=== PATIENT | male | born 1965 | race Caucasian/White ===

== ENCOUNTER 2018-02-04 14:56 | Emergency (ER) | payer MEDICAID ==
[2018-02-04] MEDS ORDERED: Sodium Chloride 0.9% 1000 ML 1,000 ML IV STA (15:16)
[2018-02-04] MEDS ORDERED: Zofran 4 MG/2 ML VIAL IV ONE (15:16)
[2018-02-04 15:23] LABS: BASOPHIL % 0.4 % (0.0-0.4); Basophil (Absolute #) 0.02 (0-0.4); Eosinophil % 1.6 % (0.00-5.0); Eosinophil (Absolute #) 0.09 (0-0.5); Granulocyte Absolute (ANC) 2.56 (1.4-6.9); Granulocytes % 45.6 % (36.0-66.0); Hematocrit 37.5 % (42-50); Hemoglobin 12.6 gm/dl (12.5-18.0); Lymphocyte (Absolute #) 2.42 (1.0-4.6); Lymphocytes % 43.1 % (24.0-44.0); Mean Cell Volume 102.2 fl (78-100); Mean Corpuscular Hemoglobin 34.3 pg (26-32); Mean Corpuscular Hgb Concent. 33.6 g/dl (32-36); Mean Platelet Volume 11.2 fl (6-9.5); Monocyte (Absolute #) 0.52 (0.0-1.3); Monocytes % 9.3 % (0.0-12.0); Platelet Count 70 K/mm3 (150-450); Red Blood Count 3.67 M/mm3 (4.1-5.6); White Blood Count 5.6 K/mm3 (4.0-10.5)
[2018-02-04 15:41] LABS: ETHYL ALCOHOL 237 mg/dL (0-10)
[2018-02-04 15:44] LABS: ACETAMINOPHEN < 10 ug/ml (10-30); SALICYLATE < 1.0 mg/dL (2-20)
[2018-02-04] MEDS ORDERED: Zofran 4 MG/2 ML VIAL ONE (15:51)
[2018-02-04] MEDS ORDERED: Sodium Chloride 0.9% 1000 ML 1,000 ML ONE (15:51)
[2018-02-04 15:57] LABS: Appearance CLEAR (CLEAR); Bilirubin NEGATIVE (NEGATIVE); Blood NEGATIVE Ery/ul (0-5); Glucose NEGATIVE (NEGATIVE); Ketones NEGATIVE (NEGATIVE); Leukocyte Esterase NEGATIVE (NEGATIVE); Nitrite NEGATIVE (NEGATIVE); Protein,Urine Dip NEGATIVE (Negative); Urobilinogen 4 mg/dL (0-1)
[2018-02-04 15:58] LABS: Amphetamine,Urine NEGATIVE (NEGATIVE); Barbiturate,Urine NEGATIVE (NEGATIVE); Benzodiazepine,Urine POSITIVE (NEGATIVE); Cocaine,Urine NEGATIVE (NEGATIVE); Opiate,Urine NEGATIVE (NEGATIVE); PCP,Urine NEGATIVE (NEGATIVE); THC,Urine NEGATIVE (NEGATIVE)
[2018-02-04 15:59] LABS: Methadone,Urine NEGATIVE (NEGATIVE)
--- NOTE | 2018-02-04 16:02 | XRAY ---
Indication: Altered mental status. Status post fall. Multiple contiguous axial images obtained through the cervical spine. Sagittal and coronal reformatted images obtained. Comparison: None Axial images negative for acute fracture or suspicious bony lesions. Mild/moderate C3-T1 degenerative endplate spurring greatest at the C5-C6 level where there is spinal canal narrowing. Sagittal and coronal reformatted images demonstrates normal alignment with C3-T1 disc space narrowing and tiny multilevel Schmorl nodes. No acute compression fracture, subluxation, or jumped facet. Normal-appearing craniocervical junction. Visualized noncontrasted soft tissues demonstrates heavy carotid calcifications bilaterally. Minimal biapical subpleural cystic changes. CT head reported separately. Impression: 1. Negative acute fracture/subluxation. 2. C3-T1 degenerative changes and multilevel tiny Schmorl nodes. CT DI 52.18
--- NOTE | 2018-02-04 16:03 | XRAY ---
Indication: Altered mental status. Status post fall. Multiple contiguous axial images obtained through the head without contrast. Comparison: None Normal appearing brain parenchyma, ventricles, and bony calvarium. Mild mucosal thickening of both ethmoid sinuses. Remaining visualized paranasal sinuses and mastoid air cells are clear. Impression: Normal CT head without contrast exam. Incidental paranasal sinus disease. CTDI 49.85
--- NOTE | 2018-02-04 16:06 | XRAY ---
Indication: Altered mental status. Status post fall. Multiple contiguous axial images obtained through the lumbar spine. Sagittal and coronal reformatted images obtained. Comparison: Lumbar radiograph April 25, 2007. Axial images negative for acute fracture or suspicious bony lesions. Minimal L4-S1 broad-based disc bulge. Small L5 Schmorl nodes. Sagittal and coronal reformatted images demonstrates normal alignment with vertebral body heights and disc spaces maintained. Stable minimal L1 anterior wedging deformity. No acute compression fracture or subluxation. Visualized noncontrasted soft tissues again demonstrates scattered aortoiliac calcifications. There is now partially visualized Hannah balloon tip in the bladder lumen. Lexx scan image demonstrates incidental moderate diffuse scattered colonic fecal debris. Impression: 1. Again negative acute fracture/subluxation. 2. Minimal L4-S1 broad-based disc bulge. 3. Incidental L5 Schmorl node, fecal stasis, scattered vascular calcifications, and Hannah catheter in situ. CT DI 46.47
--- NOTE | 2018-02-04 17:01 | ERPHSYRPT ---
- History of Present Illness Time Seen by Provider: 02/04/18 15:00 Source: patient, EMS Exam Limitations: clinical condition, intoxication Patient Subjective Stated Complaint: PATIENT FOUND DOWN ON GROUND UNRESPONSIVE IN [place]. DOWN FOR UNKNOWN AMOUNT OF TIME. HX ALCOHOL INTOXICATION. ALSO FOUND ON PATIENT BY EMS IS ONE BOTTLE OF XANAX 1 MG FOR 30 TABS FILLED ON 01/11/18. THERE ARE 17 PILLS IN THE BOTTLE AT THIS TIME. WAS GIVEN 2MG NARCAN PER EMS WITHOUT ANY CHANGE IN MENTAL STATUS. Triage Nursing Assessment: ARRIVES PER [facility]. PATIENT NOT RESPONDING TO VERBAL STIMULI AT THIS TIME. SHADY. SKIN W/D, COLOR PALE. RESP NONLABORED. IS ON BACK BOARD AND HAS C-COLLAR IN PLACE. ABRASION NOTED TO LEFT GREAT TOE. Physician History: 52 y/o white male found on ground initially minimally responsive. pt smelled of etoh. upon moving pt, pt complained of mild lower back pain. EMS placed in c collar and placed on backboard. upon arrival to ED pt denies cp, soa and abd pain. pt is known wanderer of streets, has dementia, has drug and etoh abuse hx. pt denies suicidal or homicidal issues. Timing/Duration: today Severity of Symptoms-Max: moderate Severity of Symptoms-Current: moderate Context related to: other (chronic alcohol and drug abuse hx.) Previous symptoms: same symptoms as today Allergies/Adverse Reactions: No Known Drug Allergies Allergy (Unverified 02/04/18 17:55) Home Medications: Alprazolam 1 mg [Xanax 1 mg] 1 mg PO DAILY 02/04/18 [History] - Past Medical History Pertinent Past Medical History: Yes Neurological History: Dementia ENT History: No Pertinent History Cardiac History: No Pertinent History Respiratory History: No Pertinent History Endocrine Medical History: No Pertinent History Musculoskeletal History: No Pertinent History GI Medical History: No Pertinent History History: No Pertinent History Psycho-Social History: No Pertinent History Male Reproductive Disorders: No Pertinent History Other Medical History: ALCOHOLISM - Past Surgical History Past Surgical History: (UNKNOWN) Neuro Surgical History: No Pertinent History Cardiac: No Pertinent History Respiratory: No Pertinent History Gastrointestinal: No Pertinent History Genitourinary: No Pertinent History Musculoskeletal: No Pertinent History Male Surgical History: No Pertinent History - Social History Smoking Status: Current every day smoker How long have you smoked: YRS Exposure to second hand smoke: No Patient Lives Alone: Yes - Review of Systems Constitutional: No Symptoms Eyes: No Symptoms Ears, Nose, & Throat: No Symptoms Respiratory: No Symptoms, No Cough, No Dyspnea, No Stridor, No Wheezing Cardiac: No Symptoms, No Chest Pain, No Palpitations, No Syncope Abdominal/Gastrointestinal: No Symptoms, No Abdominal Pain, No Nausea, No Vomiting, No Diarrhea Genitourinary Symptoms: No Symptoms, No Dysuria, No Frequency, No Hematuria Musculoskeletal: No Symptoms Skin: No Symptoms Neurological: Other (etoh intoxication) Psychological: Alcohol Abuse, Drug Abuse, No Suicidal Ideations, No Homicidal Ideations Endocrine: No Symptoms Hematologic/Lymphatic: No Symptoms Immunological/Allergic: No Symptoms All Other Systems: Reviewed and Negative - Nursing Vital Signs Nursing Vital Signs: Initial Vital Signs Temperature 94.5 F 02/04/18 15:01 Pulse Rate 61 02/04/18 15:01 Respiratory Rate 16 02/04/18 15:01 Blood Pressure 108/64 02/04/18 15:01 O2 Sat by Pulse Oximetry 100 02/04/18 15:01 Pain Scale Pain Intensity 0 - Physical Exam General Appearance: lethargy Eyes, Ears, Nose, Throat Exam: normal ENT inspection, moist mucous membranes Neck Exam: normal inspection, other (c collar in place) Respiratory Exam: normal breath sounds, lungs clear, airway intact, No chest tenderness, No respiratory distress, No accessory muscle use, No rhonchi, No wheezing, No stridor Cardiovascular Exam: regular rate/rhythm, normal heart sounds, normal peripheral pulses Gastrointestinal/Abdominal Exam: soft, normal bowel sounds, tenderness, distention, mass, guarding Extremities Exam: normal inspection, normal range of motion, No evidence of injury, No edema, No tenderness Neurological Exam: calm (pt with intoxication; lethargic) Appearance: disheveled, impaired insight, impaired recent memory Behavior/Eye Contact/Speech: intoxicated appearance Skin Exam: normal color, warm, dry SpO2 Interpretation: normal SpO2: 99 Oxygen Delivery: Nasal Cannula - Course Nursing assessment & vital signs reviewed: Yes EKG Interpreted by Me: RATE (62), Right [place] Deviation, Non-specific ST Changes (atrial escape rhythm) Ordered Tests: Active Orders 24 hr Category Date Time Status Supervisor Laboratory STAT Care 02/04/18 15:17 Active Catheter-[place] Hannah STAT Care 02/04/18 15:16 Active EKG-ER Only STAT Care 02/04/18 15:16 Active NPO (ED) STAT Care 02/04/18 15:16 Active Pulse Oximetry (ED) STAT Care 02/04/18 15:16 Active CERVICAL SPINE WO CONTRAST [CT] Stat Exams 02/04/18 15:16 Completed HEAD WITHOUT CONTRAST [CT] Stat Exams 02/04/18 15:16 Completed LUMBAR SPINE W/O [CT] Routine Exams 02/04/18 15:36 Completed ACETAMINOPHEN Stat Lab 02/04/18 15:10 Completed CBC W DIFF Stat Lab 02/04/18 15:10 Completed CMP Stat Lab 02/04/18 15:10 Completed ETHYL ALCOHOL Stat Lab 02/04/18 15:10 Completed SALICYLATE Stat Lab 02/04/18 15:10 Completed TROPONIN Q3H Lab 02/04/18 15:10 Completed UA W/RFX UR CULTURE Stat Lab 02/04/18 15:37 Completed Urine Triage Profile Stat Lab 02/04/18 15:37 Completed Medication Summary Generic Name Dose Route Start Last Admin Trade Name Freq PRN Reason Stop Dose Admin Fluconazole 100 mg 02/05/18 18:13 Diflucan 100 Mg PO 02/05/18 18:14 STAT ONE Ceftriaxone Sodium/Dextrose 1 g in 50 mls @ 100 mls/hr 02/04/18 18:12 Rocephin 1 Gm-D5w 50 Ml Bag IV 02/04/18 18:41 STAT STA Discontinued Medications Generic Name Dose Route Start Last Admin Trade Name Freq PRN Reason Stop Dose Admin Cephalexin HCl 500 mg 02/04/18 18:06 02/04/18 18:11 Keflex 500 Mg PO 02/04/18 18:07 Not Given STAT ONE Sodium Chloride 1,000 mls @ 999 mls/hr 02/04/18 15:16 02/04/18 17:57 Sodium Chloride 0.9% 1000 Ml IV 02/04/18 16:16 Infused .Q1H1M STA Infusion Sodium Chloride Confirm 02/04/18 15:51 Sodium Chloride 0.9% 1000 Ml Administered 02/04/18 15:52 Dose 1,000 mls @ ud .ROUTE .STK-MED ONE Ondansetron HCl 4 mg 02/04/18 15:16 02/04/18 16:02 Zofran 4 Mg/2 Ml Vial IV 02/04/18 15:17 4 mg STAT ONE Administration Ondansetron HCl Confirm 02/04/18 15:51 Zofran 4 Mg/2 Ml Vial Administered 02/04/18 15:52 Dose 4 mg .ROUTE .STK-MED ONE Prednisone 20 mg 02/05/18 18:07 Deltasone 20 Mg PO 02/05/18 18:08 STAT ONE Lab/Rad Data: Laboratory Result Diagrams 02/04/18 15:10 02/04/18 15:10 Laboratory Results 02/04/18 02/04/18 02/04/18 Range/Units 15:37 15:37 15:10 WBC (4.0-10.5) K/mm3 RBC (4.1-5.6) M/mm3 Hgb (12.5-18.0) gm/dl Hct (42-50) % MCV (78-100) fl MCH (26-32) pg MCHC (32-36) g/dl RDW (11.5-14.0) % Plt Count (150-450) K/mm3 MPV (6-9.5) fl Gran % (36.0-66.0) % Eos # (Auto) (0-0.5) Absolute Lymphs (auto) (1.0-4.6) Absolute Monos (auto) (0.0-1.3) Lymphocytes % (24.0-44.0) % Monocytes % (0.0-12.0) % Eosinophils % (0.00-5.0) % Basophils % (0.0-0.4) % Absolute Granulocytes (1.4-6.9) Basophils # (0-0.4) Sodium (137-145) mmol/L Potassium (3.5-5.1) mmol/L Chloride (98-107) mmol/L Carbon Dioxide (22-30) mmol/L Anion Gap (5-15) MEQ/L BUN (9-20) mg/dL Creatinine (0.66-1.25) mg/dL Estimated GFR ML/MIN Glucose (74-106) mg/dL Calcium (8.4-10.2) mg/dL Total Bilirubin (0.2-1.3) mg/dL AST (17-59) U/L ALT (0-50) U/L Alkaline Phosphatase (38-126) U/L Troponin I < 0.012 (0.000-0.034) ng/mL Serum Total Protein (6.3-8.2) g/dL Albumin (3.5-5.0) g/dL Urine Color YELLOW (YELLOW) Urine Appearance CLEAR (CLEAR) Urine pH 6.0 (5-6) Ur Specific [place] 1.000 (1.005-1.025) Urine Protein NEGATIVE (Negative) Urine Ketones NEGATIVE (NEGATIVE) Urine Blood NEGATIVE (0-5) Ga/ul Urine Nitrite NEGATIVE (NEGATIVE) Urine Bilirubin NEGATIVE (NEGATIVE) Urine Urobilinogen 4 (0-1) mg/dL Ur Leukocyte Esterase NEGATIVE (NEGATIVE) Urine WBC (Auto) 0-2 (0-5) /HPF Urine RBC (Auto) 0-2 (0-2) /HPF U Epithel Cells (Auto) NONE (FEW) /HPF Urine Bacteria (Auto) NONE (NEGATIVE) /HPF Urine Mucus (Auto) SLIGHT (NEGATIVE) /HPF Urine Culture Reflexed NO (NO) Urine Glucose NEGATIVE (NEGATIVE) mg/dL Salicylates (2-20) mg/dL Urine Opiates Level NEGATIVE (NEGATIVE) Ur Methadone NEGATIVE (NEGATIVE) Acetaminophen (10-30) ug/ml Urine Barbiturates NEGATIVE (NEGATIVE) Ur Phencyclidine (PCP) NEGATIVE (NEGATIVE) Urine Amphetamine NEGATIVE (NEGATIVE) U Benzodiazepine Level POSITIVE (NEGATIVE) Urine Cocaine NEGATIVE (NEGATIVE) Urine Marijuana (THC) NEGATIVE (NEGATIVE) Ethyl Alcohol (0-10) mg/dL Slides for Path Review 02/04/18 02/04/18 02/04/18 Range/Units 15:10 15:10 15:10 WBC 5.6 (4.0-10.5) K/mm3 RBC 3.67 L (4.1-5.6) M/mm3 Hgb 12.6 (12.5-18.0) gm/dl Hct 37.5 L (42-50) % MCV 102.2 H (78-100) fl MCH 34.3 H (26-32) pg MCHC 33.6 (32-36) g/dl RDW 13.0 (11.5-14.0) % Plt Count 70 L (150-450) K/mm3 MPV 11.2 H (6-9.5) fl Gran % 45.6 (36.0-66.0) % Eos # (Auto) 0.09 (0-0.5) Absolute Lymphs (auto) 2.42 (1.0-4.6) Absolute Monos (auto) 0.52 (0.0-1.3) Lymphocytes % 43.1 (24.0-44.0) % Monocytes % 9.3 (0.0-12.0) % Eosinophils % 1.6 (0.00-5.0) % Basophils % 0.4 (0.0-0.4) % Absolute Granulocytes 2.56 (1.4-6.9) Basophils # 0.02 (0-0.4) Sodium 139 (137-145) mmol/L Potassium 3.6 (3.5-5.1) mmol/L Chloride 108 H (98-107) mmol/L Carbon Dioxide 24 (22-30) mmol/L Anion Gap 11.0 (5-15) MEQ/L BUN 10 (9-20) mg/dL Creatinine 0.67 (0.66-1.25) mg/dL Estimated GFR > 60.0 ML/MIN Glucose 112 H (74-106) mg/dL Calcium 8.4 (8.4-10.2) mg/dL Total Bilirubin 0.80 (0.2-1.3) mg/dL AST 48 (17-59) U/L ALT 30 (0-50) U/L Alkaline Phosphatase 119 (38-126) U/L Troponin I (0.000-0.034) ng/mL Serum Total Protein 6.8 (6.3-8.2) g/dL Albumin 3.2 L (3.5-5.0) g/dL Urine Color (YELLOW) Urine Appearance (CLEAR) Urine pH (5-6) Ur Specific [place] (1.005-1.025) Urine Protein (Negative) Urine Ketones (NEGATIVE) Urine Blood (0-5) Ga/ul Urine Nitrite (NEGATIVE) Urine Bilirubin (NEGATIVE) Urine Urobilinogen (0-1) mg/dL Ur Leukocyte Esterase (NEGATIVE) Urine WBC (Auto) (0-5) /HPF Urine RBC (Auto) (0-2) /HPF U Epithel Cells (Auto) (FEW) /HPF Urine Bacteria (Auto) (NEGATIVE) /HPF Urine Mucus (Auto) (NEGATIVE) /HPF Urine Culture Reflexed (NO) Urine Glucose (NEGATIVE) mg/dL Salicylates < 1.0 L (2-20) mg/dL Urine Opiates Level (NEGATIVE) Ur Methadone (NEGATIVE) Acetaminophen < 10 L (10-30) ug/ml Urine Barbiturates (NEGATIVE) Ur Phencyclidine (PCP) (NEGATIVE) Urine Amphetamine (NEGATIVE) U Benzodiazepine Level (NEGATIVE) Urine Cocaine (NEGATIVE) Urine Marijuana (THC) (NEGATIVE) Ethyl Alcohol 237 H (0-10) mg/dL Slides for Path Review - Progress Progress: improved, re-examined Progress Note: 02/04/18 17:14 pt now more awake alert and oriented ct head-no acute process ct c spine-no acute process ct l spine- no acute process 02/04/18 18:14 pt at baseline. drinking water well, temperature wnl. alert and oriented x4. denies cp, soa, abd pain. Counseled pt/family regarding: lab results, diagnosis, need for follow-up, rad results - Departure Time of Disposition: 18:15 Departure Disposition: Home Clinical Impression: Alcohol intoxication, Benzodiazepine abuse Clinical Impression: (Ruled Out): UTI (urinary tract infection) Condition: Stable Critical Care Time: No Referrals: CASIMIRO PERKINS MD [Primary Care Provider] - Additional Instructions: drink plenty of fluids. follow up with primary doctor. stop consuming alcohol.
[2018-02-04 17:09] LABS: ALBUMIN 3.2 g/dL (3.5-5.0); ALKALINE PHOSPHATASE 119 U/L (38-126); BLOOD UREA NITROGEN 10 mg/dL (9-20); CHLORIDE 108 mmol/L (98-107); Calcium 8.4 mg/dL (8.4-10.2); Carbon Dioxide 24 mmol/L (22-30); Creatinine 1 0.67 mg/dL (0.66-1.25); Glucose 112 mg/dL (74-106); Potassium 3.6 mmol/L (3.5-5.1); SGOT/AST 48 U/L (17-59); SGPT/ALT 30 U/L (0-50); SODIUM 139 mmol/L (137-145); Total Protein 6.8 g/dL (6.3-8.2)
[2018-02-04] MEDS ORDERED: KEFLEX 500 MG PO ONE (18:06)
[2018-02-04] MEDS ORDERED: ROCEPHIN 1 Gm-D5w 50 ml Bag** 1 G/50 ML IVPB IV STA (18:12)
[2018-02-04 21:23] VITALS: BP 112/68; PULSE 69; O2SAT 96
[2018-02-05] MEDS ORDERED: DELTASONE 20 MG PO ONE (18:07)
[2018-02-05] MEDS ORDERED: Diflucan 100 MG PO ONE (18:13)
== END 2018-02-04 21:20 | disposition home or self-care (01) ==
LOC: ED 14:56
DX: F10.120 Alcohol abuse with intoxication, uncomplicated (principal); F13.120 Sedative, hypnotic or anxiolytic abuse with intoxication, uncomplicated; N39.0 Urinary tract infection, site not specified; M54.5 Low back pain; F03.90 Unspecified dementia, unspecified severity, without behavioral disturbance, psychotic disturbance, mood disturbance, and anxiety; Z79.899 Other long term (current) drug therapy
CPT/HCPCS: 36415; 51702; 70450; 72125; 72131; 80053; 80307; 81001; 84484; 85025; 93005; 93041; 96360; 96374; 99285; G0481; J2405; A9270-GY; G0480